=== PATIENT | female | born 1970 | race Hispanic/Latino ===

== ENCOUNTER 2025-02-25 07:57 | Day surgery (SDC) | payer OTHER, SELFPAY ==
--- NOTE | 2025-02-25 | PATH_ITS ---
[facility] Accession Number: [id number] No. of containers..01 Tissue . 01 Material submitted: . uterus - UTERINE FIBROIDS . 01 Diagnosis: UTERUS, CURETTAGE: Fragments of leiomyoma and inactive to weakly proliferative endometrium. Negative for endometrial intraepithelial neoplasia and malignancy. MRV 03/01/2025 1303 Local . 01 Electronically signed: . Lala Magaña DO, Pathologist NPI- [id number] . 01 Gross description: . UTERINE FIBROIDS: Received in formalin are minute fragments of mucoid and hemorrhagic material measuring 3.5 x 3.5 x 0.4 cm in aggregate. Submitted in toto in 2 cassettes. /LAZARO 02/26/2025 0007 Local . 01 Pathologist provided ICD-10: D25.9 . 01 CPT . 397554 Specimen Comment: A courtesy copy of this report has been sent to [facility] Pathology Performed at: [address] [address], [place], [place] [id number] MD Rajat Rivers MD Phone: [phone]
[2025-02-25 08:51] VITALS: BP 124/79; PULSE 79; RESP 14; TEMP 36.3; O2SAT 98; BMI 37.9
[2025-02-25] MEDS: LACTATED RINGERS 1,000 ML 42 ML IV (08:58)
--- NOTE | 2025-02-25 09:26 | PM.GYNHP.1 ---
History of Present Illness History of Present Illness Narrative: Alba Clancy is a 54 year old female with postmenopausal bleeding and ultrasound findings showing a submucosal fibroid, presenting today for hysteroscopy/D&C/possible myomectomy. She reports a burning abdominal pain for the last week, but denies fever, chills, nausea, or vomiting. 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 Hearing decreased Cystic fibrosis Allergies Depression Restless leg syndrome Peripheral neuropathy Osteoarthritis Foot pain Fibromyalgia Chronic back pain Carpal tunnel syndrome Ankle pain Tinnitus Diabetes (~2008) Surgical History (Updated 02/15/25 @ 20:50 by Rafia Collins) Anesthesia History of appendectomy (~1995) History of section (~1993) Ectopic (~1996) Family History (Updated 02/15/25 @ 20:54 by Rafia Collins) Father Cancer Hypertension Stomach cancer Mother Diabetes mellitus History of heart disease Mental health problem History of heart attack Brother Diabetes mellitus Hyperlipidemia Sister Diabetes mellitus History of heart disease Hypertension Hyperlipidemia Mental health problem Grandfather History of heart disease Grandmother History of heart disease Grandfather History of heart disease Grandmother History of heart disease Family/Other Mental health problem Depression Social History Smoking Status: Never smoker alcohol intake: current Meds Home Medications and Allergies Home Medications Medication Instructions Recorded Confirmed Type duloxetine 30 mg capsule,delayed 30 mg PO DAILY 01/15/25 02/25/25 History release glimepiride 4 mg tablet 4 mg PO DAILY 01/15/25 02/25/25 History lidocaine 5 % topical patch patch topical DAILY 01/15/25 01/15/25 History liraglutide 0.6 mg/0.1 mL (18 mg/3 18 mg SUBCUT DAILY 01/15/25 02/25/25 History mL) subcutaneous pen injector lisinopril 5 mg tablet 5 mg PO DAILY 01/15/25 02/25/25 History lovastatin 20 mg tablet 20 mg PO DAILY 01/15/25 02/25/25 History meloxicam 15 mg tablet 15 mg PO DAILY 01/15/25 02/25/25 History metformin 500 mg tablet 500 mg PO DAILY 01/15/25 02/25/25 History naproxen 500 mg tablet 500 mg PO DAILY 01/15/25 02/25/25 History pregabalin 150 mg capsule 150 mg PO 3XD 01/15/25 02/25/25 History Allergies Allergy/AdvReac Type Severity Reaction Status Date / Time MORPHINE AdvReac Intermediate N/V Uncoded 02/25/25 08:37 Review of Systems Review of Systems ROS: Yes All systems reviewed with the patient and are negative except as otherwise documented Exam Vital Signs (past 8 hours): - 02/25/25 08:51 Temperature 97.4 F L Pulse Rate 79 Respiratory Rate 14 Blood Pressure 124/79 Pulse Oximetry 98 Oxygen Delivery Method Room Air Oxygen Delivery Method Room Air Const General: healthy appearing, comfortable and No acute distress Resp Effort & Inspection: normal respiratory effort and able to speak in complete sentences Skin General: no rashes or lesions noted Neuro Cognition: normal cognition Speech: speech normal Extrem General: normal to inspection Psych Mood: congruent mood Affect: normal affect Objective Imaging US - abdomen: Radiologist's impression: She underwent a pelvic ultrasound in November, that showed an endometrial stripe of 4 mm, with a fundal submucosal fibroid measuring 1.3 cm. She also was noted to have a left 1.8 cm ovarian cyst, likely hemorrhagic. Assessment & Plan Assessment and plan (1) Postmenopausal bleeding: Status: Acute (2) Submucous uterine fibroid: Status: Acute Assessment & Plan narrative: 54yo F with postmenopausal bleeding and US findings showing a submucosal fibroid, counseled and consented for diagnostic hysteroscopy, possible myomectomy, dilation and curettage. -plan for same day surgery -no preop abx indicated -VTE risk low, SCDs intraop Surgery consent We discussed the risks/benefits/alternatives to the proposed procedure, to include but not limited to: -risk of bleeding, requiring medications, blood products, or other procedures as indicated -risk of infection, requiring prolonged hospital stay or other procedures -risk of injury to other structures, including bowel, bladder, blood vessels, nerves, etc. which may also require additional procedures -risk of adverse reaction to anesthesia or medications -risk of venous thromboembolism and associated sequelae -risk of rare complications such as cardiac arrest, or extremely rarely, Patient is aware of the risks, and desires to proceed with planned surgical procedure. Time-Based Coding :: [20min] spent with patient and on the chart (including review of chart, obtaining history, exam, reviewing outside data, placing orders, documenting exam and treatment plan, and counseling patient) on [02/25/25].
[2025-02-25] MEDS: ACETAMINOPHEN IV 1,000 MG/100 ML VIAL 400 MG IV (09:32)
[2025-02-25] MEDS: SCOPOLAMINE 1 PATCH TOP (09:32)
[2025-02-25] MEDS: INSULIN LISPRO 100 UNIT/ML 3ML VIAL SUBCUT (09:32)
--- NOTE | 2025-02-25 10:01 | SUR.OPER ---
Lithotomy on padded OR bed, head on pillow, arms secured on padded arm boards at <90 degrees abduction. Legs secured in padded yellow fins stirrups.
--- NOTE | 2025-02-25 10:13 | P.OP_ITS ---
Operative Date/Time/Diagnoses Date of procedure: 02/25/25 Time of procedure: 09:45 Pre-op diagnosis: 1. Postmenopausal bleeding 2. Uterine fibroid Post-op diagnosis: same Procedure & Clinicians Procedure: Diagnostic hysteroscopy Hysteroscopic myomectomy Same procedure as scheduled: Yes Indications: 54yo F with postmenopausal bleeding and uterine fibroid on ultrasound, counseled and consented for the above procedures. Surgeon: Katy Lopez Click Yes if Unassisted: Yes Anesthesia Type: General Operative Notes Findings: 1-2cm fundal submucosal fibroid; normal appearing uterine cavity, bilateral tubal ostia visualized Specimen(s): other (uterine fibroid) Estimated Blood Loss (mL): 5 Blood products transfused: none Procedure in detail: The risks, benefits, indications and alternatives of the procedure were reviewed with the patient and informed consent was obtained. The pt was taken to the operating room where general anesthesia with LMA was obtained without difficulty. The pt was then placed in the low lithotomy position using gel-padde d Dillon stirrups. Sequential compression devices were placed bilaterally for VTE prophylaxis. The pt was then prepped and draped in the sterile fashion. A sterile speculum was placed in the patient?s vagina and the cervix was visualized. A single tooth tenaculum was used to grasp the anterior lip of the cervix. The cervix was then gently, dilated to a size 8 Hegar dilator. The operative hysteroscope was first primed and pressure set. The operative hysteroscope was then advanced through the endocervical canal under direct visualization. The uterus was distended with warm saline, and notable for the above findings. The Myosure XL was then inserted into the operative hysteroscope. The fundal fibroid was resected using the Myosure. The operative hysteroscope was then removed under direct visualization. Tissue obtained was sent to pathology for review. The single tooth tenaculum was removed from the anterior lip of the cervix. The tenaculum site was noted to be hemostatic after direct pressure was applied. All instruments were then removed from the patient?s vagina. Hysteroscopic fluid deficit was 340cc of normal saline. The patient tolerated the procedure well. At the completion of the case the sponge and needle counts were correct x 2. The patient was taken to the PACU in stable condition. Complications: none Post-operative Condition: stable Disposition: PACU Plan for aftercare: Discharge to home once patient is meeting all discharge criteria.
[2025-02-25 10:15] VITALS: BP 147/84; PULSE 81; RESP 12; TEMP 36.4; O2SAT 95
[2025-02-25 10:20] VITALS: BP 149/86; PULSE 78; RESP 12; TEMP 36.3; O2SAT 95
[2025-02-25 10:39] VITALS: BP 135/78; PULSE 75; RESP 12; TEMP 36.4; O2SAT 95
[2025-02-25] MEDS: OXYCODONE IR 5 MG TABLET PO (11:03)
== END 2025-02-25 11:36 | disposition home or self-care (01) ==
PROVIDERS: Referring Provider Student in an Organized Health Care Education/Training Program; Visit Provider Student in an Organized Health Care Education/Training Program
PROC: 0UDB8ZZ Extraction of Endometrium, Via Natural or Artificial Opening Endoscopic (ICD-10-PCS; CPT 58558; principal; 2025-02-25 09:45)
DX: N95.0 Postmenopausal bleeding (principal); D25.0 Submucous leiomyoma of uterus
CPT/HCPCS: 58561; J0131; J1100; J1815; J2405; J2704; J3010

== ENCOUNTER 2025-03-01 10:45 | Emergency (ER) | payer OTHER, SELFPAY ==
[2025-03-01] VITALS (15 sets, daily range): BP systolic 126–158; BP diastolic 65–79; PULSE 71–92; RESP 18; TEMP 36.6; O2SAT 95–99; BMI 38.0
[2025-03-01 11:55] LABS: Add Manual Diff / Slide Review NO; Basophils Absolute Auto 100 /uL (0-100); Basophils Percent Auto 0.7 % (0-2); Eosinophils Absolute Auto 200 /uL (0-450); Eosinophils Percent Auto 1.8 % (2-4); Hematocrit 37.7 % (36-46); Hemoglobin 12.9 g/dL (12.0-16.0); Lymphocytes Absolute Auto 2600 /uL (1100-4500); Lymphocytes Percent Auto 26.6 % (25-40); Mean Corpuscular HGB Conc 34.2 % (30-36); Mean Corpuscular Hemoglobin 30.9 PG (26-34); Mean Corpuscular Volume 90.3 fL (80-100); Monocytes Absolute Auto 600 /uL (0-900); Monocytes Percent Auto 6.2 % (3-14); Neutrophils Absolute Auto 6400 /uL (1500-7000); Neutrophils Percent Auto 64.7 % (50-75); Platelet Count 346 X10^3/uL (150-400); Red Blood Cell Count 4.18 X10^6/uL (4.0-5.2); Red Cell Distribution Width 13.4 % (11.6-14.8); White Blood Cell Count 9.9 X10^3/uL (4.5-11.0)
[2025-03-01 12:06] LABS: Blood Urea Nitrogen 12 mg/dL (7-17); Calcium 9.3 mg/dL (8.4-10.2); Carbon Dioxide 25 mmol/L (22-32); Chloride 100 mmol/L (98-107); Estimated Glomerular Filt Rate > 60 mL/min (>60); Glucose 240 mg/dL (70-100); HEMOLYSIS < 15 (0-50); Sodium 138 mmol/L (137-145)
[2025-03-01 12:21] LABS: Urine Volume 10mL (spun)
[2025-03-01 12:25] LABS: Bacteria Urine None Seen; Culture Indicated Urine Cult Not Indicated; RBC Urine 1-5/HPF (0-5/HPF); Squamous Epithelial Cell Urine None Seen (0-5/HPF); WBC Urine None Seen (0-5/HPF)
[2025-03-01] MEDS: KETOROLAC 30 MG/ML VIAL 15 MG IV (12:29)
--- NOTE | 2025-03-01 13:20 | DI.US.S_ITS ---
PROCEDURE: US PELVIC COMPLETE INDICATIONS: bag bleeding after hysteroscopy TECHNIQUE: Real-time scanning was performed of the pelvic organs, with image documentation. Additional endovaginal scanning was necessary due to incomplete visualization of the adnexal and endometrial structures by transabdominal scanning. COMPARISON: None. FINDINGS: Uterus: Uterus is anteverted and normal in size at 8.6 x 5.2 x 4.8 cm. The myometrium is heterogeneous. No discrete uterine fibroids are seen. The endometrium measures 8 mm combined thickness. No gross endometrial mass or fluid. Slight increased vascularity within anterior aspect of the endometrium is seen. Ovaries: The right ovary measures 2.8 x 2.3 x 2.7 cm, with a calculated ovarian volume of 9.0 cc. The left ovary measures 3.3 x 2.7 x 3.5 cm, with a calculated ovarian volume of 16.2 cc. Complex mixed stents solid echotexture structure is noted in left ovary measures 1.6 x 1.5 x 1.4 cm in size. No definite internal vascularity is seen. Less than 12 follicles can be seen in each ovary. normal arterial and venous flow is seen in bilateral ovaries on color Doppler images. No adnexal masses are seen. Other: No pathologic free abdominal or pelvic fluid. IMPRESSION: 1. No evidence of ovarian torsion. Complex cystic structure is noted in left ovary measures 1.6 cm in size. Short-term sonographic follow-up in 4-6 weeks is recommended. 2. Slightly increased vascularity along anterior aspect of endometrium which may be related to recent is cirrhotic a PE. No gross endometrial mass or fluid is seen. No discrete uterine fibroids. We strive to produce accurate, complete, and clear reports of imaging services. To assist us in improving patient care, this report was composed using standard report templates and voice recognition software. Therefore, it may contain abnormal punctuation, insertions and/or omissions. Occasional wrong-word or sound-alike substitutions may occur. Though we review the report and make efforts to correct it, we do recommend that the report be read carefully in proper context to recognize any text inaccuracies. Dictated by: Shay Mendoza M.D. on 03/01/2025 at 14:06 Approved by: Shay Mendoza M.D. on 03/01/2025 at 14:09
--- NOTE | 2025-03-01 14:52 | ED.GENADULT ---
HPI - General Adult General Chief complaint: Vaginal Bleeding Stated complaint: Pain from Surgery Time Seen by Provider: 03/01/25 12:05 History of Present Illness HPI narrative: 54-year-old female with history of postmenopausal bleeding, had hysteroscopy procedure by local lead accountant Dr. Lopez on three days ago, now with lower abdominal cramping and some scant vaginal bleeding, history of fibroids, suspects that they might have been cauterized during the procedure. No fevers or chills. No diarrhea. No nausea or vomiting. Related Data Home Medications Medication Instructions Recorded Confirmed duloxetine 30 mg capsule,delayed 30 mg PO DAILY 01/15/25 02/25/25 release glimepiride 4 mg tablet 4 mg PO DAILY 01/15/25 02/25/25 lidocaine 5 % topical patch patch topical DAILY 01/15/25 01/15/25 liraglutide 0.6 mg/0.1 mL (18 mg/3 18 mg SUBCUT DAILY 01/15/25 02/25/25 mL) subcutaneous pen injector lisinopril 5 mg tablet 5 mg PO DAILY 01/15/25 02/25/25 lovastatin 20 mg tablet 20 mg PO DAILY 01/15/25 02/25/25 meloxicam 15 mg tablet 15 mg PO DAILY 01/15/25 02/25/25 metformin 500 mg tablet 500 mg PO DAILY 01/15/25 02/25/25 naproxen 500 mg tablet 500 mg PO DAILY 01/15/25 02/25/25 pregabalin 150 mg capsule 150 mg PO 3XD 01/15/25 02/25/25 Allergies Allergy/AdvReac Type Severity Reaction Status Date / Time morphine Allergy Verified 03/01/25 10:53 Patient History Medical History (Updated 03/01/25 @ 16:24 by José Miguel Zuluaga MD) 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 Hearing decreased Cystic fibrosis Allergies Depression Restless leg syndrome Peripheral neuropathy Osteoarthritis Foot pain Fibromyalgia Chronic back pain Carpal tunnel syndrome Ankle pain Tinnitus Diabetes (~2008) Surgical History (Updated 02/15/25 @ 20:50 by Rafia Collins) Anesthesia History of appendectomy (~1995) History of section (~1993) Ectopic (~1996) Family History (Updated 02/15/25 @ 20:54 by Rafia Collins) Father Cancer Hypertension Stomach cancer Mother Diabetes mellitus History of heart disease Mental health problem History of heart attack Brother Diabetes mellitus Hyperlipidemia Sister Diabetes mellitus History of heart disease Hypertension Hyperlipidemia Mental health problem Grandfather History of heart disease Grandmother History of heart disease Grandfather History of heart disease Grandmother History of heart disease Family/Other Mental health problem Depression Social History Smoking Status: Never smoker alcohol intake: current Smoking Status: Never smoker Exam Narrative Exam Narrative: GENERAL: Well-developed patient, in mild distress. HEAD: Atraumatic. Normocephalic. EYES: Pupils equal round and reactive. Extraocular motions intact. No scleral icterus. No injection or drainage. ENT: Nose without bleeding, purulent drainage. Throat without erythema, tonsillar hypertrophy or exudate. Airway patent. NECK: Trachea midline. Non tender CARDIOVASCULAR: Regular rate and rhythm without murmurs, gallops, or rubs. RESPIRATORY: Clear to auscultation. Breath sounds equal bilaterally. No wheezes, rales, or rhonchi. GASTROINTESTINAL: Abdomen soft, non-tender, nondistended. EXTREMITIES: No edema or joint tenderness. BACK: Nontender without deformity or crepitance. No flank tenderness. NEURO: AOx3. Motor functions grossly nonfocal SKIN: No rash or erythema of visible areas Initial Vital Signs Initial Vital Signs: Vital Signs Pulse Rate 86 03/01/25 10:50 Pulse Oximetry 99 03/01/25 10:50 Course Orders Ordered: ED Orders 03/01/25 13:20 US pelvic complete Stat Discontinued Medications Ketorolac Tromethamine (Ketorolac 30 Mg/Ml Vial) 15 mg IV NOW ONE Stop: 03/01/25 12:21 Last Admin: 03/01/25 12:29 Dose: 15 mg Documented By: [facility] Vital Signs Vital signs: Vital Signs - 8 hr 03/01/25 14:00 03/01/25 14:23 03/01/25 14:23 Pulse Rate 72 72 Blood Pressure 138/68 Pulse Oximetry 96 97 03/01/25 14:30 03/01/25 14:30 03/01/25 15:00 Pulse Rate 71 79 Blood Pressure 127/67 Pulse Oximetry 97 97 03/01/25 15:00 03/01/25 15:30 03/01/25 15:30 Pulse Rate 73 Blood Pressure 126/79 154/69 H Pulse Oximetry 96 03/01/25 16:00 03/01/25 16:00 03/01/25 16:30 Pulse Rate 92 H 74 Blood Pressure 141/65 H Pulse Oximetry 97 96 03/01/25 16:30 Pulse Rate Blood Pressure 139/65 Pulse Oximetry Medical Decision Making Lab Data 03/01/25 11:40 03/01/25 11:40 Labs: Lab Results 03/01/25 03/01/25 Range/Units 11:40 12:00 WBC 9.9 (4.5-11.0) X10^3/uL RBC 4.18 (4.0-5.2) X10^6/uL Hgb 12.9 (12.0-16.0) g/dL Hct 37.7 (36-46) % MCV 90.3 (80-100) fL MCH 30.9 (26-34) PG MCHC 34.2 (30-36) % RDW 13.4 (11.6-14.8) % Plt Count 346 (150-400) X10^3/uL Neut % (Auto) 64.7 (50-75) % Lymph % (Auto) 26.6 (25-40) % Randall % (Auto) 6.2 (3-14) % Eos % (Auto) 1.8 L (2-4) % Baso % (Auto) 0.7 (0-2) % Neut # (Auto) 6400 (1762-2327) /uL Lymph # (Auto) 2600 (6117-1750) /uL Randall # (Auto) 600 (0-900) /uL Eos # (Auto) 200 (0-450) /uL Baso # (Auto) 100 (0-100) /uL Sodium 138 (137-145) mmol/L Potassium 4.0 (3.4-5.1) mmol/L Chloride 100 (98-107) mmol/L Carbon Dioxide 25 (22-32) mmol/L BUN 12 (7-17) mg/dL Creatinine 0.50 L (0.52-1.04) mg/dL Estimated GFR > 60 (>60) mL/min BUN/Creatinine Ratio 24.0 H (6-22) Glucose 240 H (70-100) mg/dL Calcium 9.3 (8.4-10.2) mg/dL Urine RBC 1-5/hpf (0-5/HPF) Urine WBC None seen (0-5/HPF) Ur Squamous Epith Cells None seen (0-5/HPF) Urine Bacteria None seen (None) Ur Culture Indicated? Cult not indicated Vol Urine Centrifuged 10ml (spun) Blood Type A Positive Antibody Screen Negative Urine Dip Bedside Urine Glucose 250 mg/dl Bedside Urine Bilirubin - Negative Bedside Urine Ketone - Negative Urine Specific Clifton 1.015 Bedside Urine Occult Blood ++ Bedside Urine pH 6.0 Bedside Urine Protein - Negative Bedside Urine Urobilinogen - Negative Bedside Urine Nitrite - Negative Bedside Urine Leukocytes - Negative Esterase Point of care testing: Urine Dip Bedside Urine Glucose 250 mg/dl Bedside Urine Bilirubin - Negative Bedside Urine Ketone - Negative Urine Specific Clifton 1.015 Bedside Urine Occult Blood ++ Bedside Urine pH 6.0 Bedside Urine Protein - Negative Bedside Urine Urobilinogen - Negative Bedside Urine Nitrite - Negative Bedside Urine Leukocytes - Negative Esterase MDM Narrative Medical decision making narrative: Recent hysteroscopy for hemorrhage evaluation, vaginal spotting, lower abdominal cramping. Afebrile, SIRS screen negative. No significant tenderness on exam. Hb unremarkable. US Pelvis pending. US Pelvis showed no acute changes. See radiology report. FU with gynecology post procedure as planned. DC home with . Return precautions discussed. Discharge Plan Departure Patient Disposition: Home Clinical Impression: Postmenopausal bleeding Instructions: DI for Vaginal Bleeding Activity Restrictions/Additional Instructions: History of postmenopausal bleeding status post hysterectomy on 4 days ago, having lower abdominal cramping and vaginal spotting. No fever on triage. Screening labs unremarkable including hemoglobin. Ultrasound of the pelvis was obtained, showed no evidence of perforation or free fluid to suggest complication of the procedure. Follow up with your lead accountant as planned. Return earlier to this/nearest emergency department for any change worsening symptoms or any concerns prior. Prescriptions: No Action pregabalin 150 mg capsule 150 mg PO 3XD liraglutide 0.6 mg/0.1 mL (18 mg/3 mL) pen injector 18 mg SUBCUT DAILY Patient Comments: [NO ORIGINAL SIG] naproxen 500 mg tablet 500 mg PO DAILY Patient Comments: [NO ORIGINAL SIG] lovastatin 20 mg tablet 20 mg PO DAILY lisinopril 5 mg tablet 5 mg PO DAILY duloxetine 30 mg capsule,delayed release(DR/EC) 30 mg PO DAILY glimepiride 4 mg tablet 4 mg PO DAILY meloxicam 15 mg tablet 15 mg PO DAILY metformin 500 mg tablet 500 mg PO DAILY lidocaine 5 % adhesive patch,medicated topical DAILY Referrals: Lui Deal ARNP [Primary Care Provider] - Stand Alone Forms: Patient Portal/API/Survey
== END 2025-03-01 16:48 | disposition home or self-care (01) ==
PROVIDERS: Emergency Provider Emergency Medicine; PCP Registered Nurse
DX: N95.0 Postmenopausal bleeding (principal); R10.30 Lower abdominal pain, unspecified
CPT/HCPCS: 36415; 51798; 76830; 76856; 80048; 81003; 81015; 85025; 86850; 86900; 86901; 93976; 96374; 99284; J1885